=== PATIENT | female | born 1965 | race African-American/Black ===

== ENCOUNTER 2016-04-01 17:01 | Emergency (ER) | payer OTHER ==
[~2016-04-01] VITALS: Ht 163.8 cm; Wt 149.7 kg
[2016-04-01 17:17] VITALS: BP 172/89
--- NOTE | 2016-04-01 17:30 | PHYS DOC ---
Past Medical History Additional Past Medical Histor: anxiety depression hypothyroidism Additional Past Surgical Histo: cholecystectomy Alcohol Use: None Drug Use: None Adult General Chief Complaint Chief Complaint: DIZZY/LIGHT HEADED HPI HPI 50-year-old female presenting to the emergency department today with head trauma. She reports slipping on the ice today at around 6:00 this morning. It she hit her head. She denies loss of consciousness. She denies unilateral numbness weakness or tingling. She does describe lightheadedness intermittently. Onset 6:00 Location head Duration intermittent No alleviating factors. Worse with concentrating. Review of Systems Review of Systems ROS negative for chest pain abdominal pain shortness of breath. She denies unilateral numbness weakness or tingling. All other review of systems is negative unless otherwise noted in history of present illness. Allergies Allergies Allergies Coded Allergies Type Severity Reaction Last Updated Verified Penicillins Allergy Intermediate rash 04/01/16 Yes Physical Exam Physical Exam Constitutional: Well developed, well nourished, no acute distress, non-toxic appearance. HENT: Normocephalic, atraumatic, bilateral external ears normal, oropharynx moist, no oral exudates, nose normal. [] Eyes: PERRLA, EOMI, conjunctiva normal, no discharge. Neck: Normal range of motion, no tenderness, supple, no stridor. [] Cardiovascular:Heart rate regular rhythm, no murmur [] Lungs & Thorax: Bilateral breath sounds clear to auscultation Abdomen: Bowel sounds normal, soft, no tenderness, no masses, no pulsatile masses. [] Skin: Warm, dry, no erythema, no rash. Back: No tenderness, no CVA tenderness. [] Extremities: No tenderness, no cyanosis, no clubbing, ROM intact, no edema. [] Neurologic: Mental status: Awake oriented and alert x3 Cranial nerves: Extraocular movements intact, eyebrows janel bilaterally smile symmetric, uvula elevation, shoulder shrug intact, tongue protrusion normal DTRs: 2+ Sensation: equal and normal in all extremities Strength: 5/5 in upper and lower extremities bilaterally Psychologic: Affect normal, judgement normal, mood normal. [] Current Patient Data Vital Signs Vital Signs Date Time Temp Pulse Resp B/P Pulse Ox O2 Delivery O2 Flow Rate FiO2 04/01/16 17:17 98 88 18 172/89 99 Room Air 98.0 Radiology/Procedures Radiology/Procedures [] Course & Med Decision Making Course & Med Decision Making Pertinent Labs and Imaging studies reviewed. (See chart for details) 50-year-old female presenting to the emergency department today with intermittent lightheadedness headache and confusion after head trauma. [place] head CT rules applied. Recommended no head CT. Turk[place] C-spine rules applied recommends no CT C-spine. Patient's clinical presentation suggestive of concussion. Concussion guidelines and [id number] instructions given. The patient was referred to the [facility] concussion clinic. Dragon Disclaimer Dragon Disclaimer This electronic medical record was generated, in whole or in part, using a voice recognition dictation system. Departure Departure Impression: Primary Impression: Brain concussion Disposition: 01 HOME, SELF-CARE Admitting Physician: Other Condition: STABLE Patient Instructions: Concussion and Brain Injury Additional Instructions: Thank you for allowing us to participate in your care today. Follow up with the [facility] at [phone]. If you do not have a primary care provider you can ask for a list of our primary care providers. Return to the emergency department you have any new or concerning findings. This should be evaluated by the primary care physician and any necessary consulting services for continued management within a few days after discharge. Return to emergency room if you have any new or concerning symptoms including but not limited to fever, chills, nausea, vomiting, intractable pain, any new rashes, chest pain, shortness of air, uncontrolled bleeding, difficulty breathing, and/or vision loss. Scripts Hydrocodone Bit/Acetaminophen (Hydrocodone-Apap 5-325 )1 Each Tablet1 Tab PO PRN Q6HRS PRN PAIN #15 TAB Be careful as this medication may cause you to be drowsy or tired. Do not drive on this medication. Prov:JAVAN EMANUEL MD 04/01/16 JAVAN EMANUEL MD Apr 01, 2016 17:30
[2016-04-01] MEDS ORDERED: HYDR-2666 PO (17:39)
== END 2016-04-01 17:40 | disposition home or self-care (01) ==
LOC: ER 17:01
DX: S06.0X0A Concussion without loss of consciousness, initial encounter (principal); E03.9 Hypothyroidism, unspecified; Z88.0 Allergy status to penicillin; W00.2XXA Other fall from one level to another due to ice and snow, initial encounter; Y93.89 Activity, other specified; Y99.8 Other external cause status; Y92.89 Other specified places as the place of occurrence of the external cause
CPT/HCPCS: 99283

== ENCOUNTER → 2018-02-04 | Outpatient (CLI) | payer SELFPAY ==
[~2018-02-04] MED LIST: HYDR-2758 PO
--- NOTE | 2018-02-05 17:25 | KCIC ---
Bilateral digital screening mammograms: Reason for examination: Routine screening. Comparison is made to previous studies dated 03/01/2015 and 07/14/2013. Interpretation is made with the benefit of CAD. The skin and nipples show no abnormalities. No abnormal lymph nodes are seen. The breast parenchyma is predominantly fatty. (Breast density: Category A.) There are no dominant masses, suspicious calcifications or architectural distortions. A few benign calcifications are again seen. Impression: No evidence of malignancy. Recommend routine screening. BI-RADS Category 2: Benign. "Our facility is accredited by the [employer] Mammography Program." This patient's information has been entered into a reminder system for the patient to be notified with the results of her examination and a target date for the next mammogram. Electronically signed by: Violet Bunch MD (02/05/2018 5:22 PM) [id number]
== END | disposition home or self-care (01) ==
LOC: KCIC MAMMO 15:40
PROVIDERS: ATTEND Internal Medicine
DX: Z12.31 Encounter for screening mammogram for malignant neoplasm of breast (principal)
CPT/HCPCS: 77067

== ENCOUNTER 2021-03-10 05:57 | Day surgery (SDC) | payer BC ==
[~2021-03-10] VITALS: Ht 162.6 cm; Wt 159.0 kg
[~2021-03-10 05:57] MED LIST changes: +CITA20TA6 PO; -HYDR-2758 PO; +HYDR-2761 PO; +LEVO50TA5 PO; +LOVA20TA2 PO; +METF500T16 PO; +QUET200T4 PO
[2021-03-10] MEDS ORDERED: MORPHINE SULFATE 2 MG/ML INJ. IVP PRN (06:00)
[2021-03-10] MEDS ORDERED: IV RINGERS,LACTATED 1000ML 1,000 ML IV SCH (06:00)
[2021-03-10] MEDS ORDERED: PROCHLORPERAZINE 10 MG/2 ML VIAL. IVP PRN (06:00)
[2021-03-10] MEDS ORDERED: HYDROmorphone 2 MG/ML VIAL IVP PRN (06:00)
[2021-03-10] MEDS ORDERED: fentaNYL PF VIAL 100 MCG/2 ML VIAL IVP PRN ×2 (06:00)
[2021-03-10 06:27] VITALS: BP 150/77
[2021-03-10] MEDS ORDERED: INSULIN LISPRO 100 UNIT/ML 3ML VIAL for OP,RR ONLY. SQ PRN (06:30)
[2021-03-10] MEDS ORDERED: ONDANSETRON PF 4 MG/2 ML VIAL. ONE (07:00)
[2021-03-10] MEDS ORDERED: ROCURONIUM 100 MG/10 ML VIAL. ONE (07:00)
[2021-03-10] MEDS ORDERED: LIDOCAINE 1% PF 5 ML VIAL. ONE (07:00)
[2021-03-10] MEDS ORDERED: fentaNYL PF VIAL 100 MCG/2 ML VIAL ONE (07:00)
[2021-03-10] MEDS ORDERED: DEXAMETHASONE SOD PHOS 4 MG/ML VIAL ONE (07:00)
[2021-03-10] MEDS ORDERED: SUCCINYLCHOLINE 200 MG/10 ML VIAL. ONE (07:00)
[2021-03-10] MEDS ORDERED: KETOROLAC 30 MG/ML VIAL. ONE (08:34)
--- NOTE | 2021-03-10 08:50 | PDOC4 ---
BRIEF OPERATIVE NOTE Date: Mar 10, 2021 Pre-Op Diagnosis endometrial thickening Post-Op Diagnosis same Procedure Performed h/s D&C with myosure Surgeon Dr. Kori Oneill Anesthesiologist Dr. Villegas Anesthesia Type: General Blood Loss 10cc IV Fluid see anesthesia notes Urine Output 5cc straight cath prior Specimens Obtained endometrial currettings Findings just prolif white fluffy tissue; no discrete abnormalities; no polyps, fibroids Complications none Operative Note 4min 20 sec cut time with myosure reach fluid deficit 300cc [id number] KORI ONEILL MD Mar 10, 2021 08:50
[2021-03-10] MEDS ORDERED: SIMETHICONE 80 MG TAB.CHEW PO PRN (09:00)
[2021-03-10] MEDS ORDERED: MAG HYDROX/ALUMINUM HYD/SIMETH 30 ML ORAL.SUSP PO PRN (09:00)
[2021-03-10] MEDS ORDERED: diphenhydrAMINE 50 MG/ML VIAL IV PRN (09:00)
[2021-03-10] MEDS ORDERED: diphenhydrAMINE HCL 25 MG CAPSULE PO PRN (09:00)
[2021-03-10] MEDS ORDERED: 0.9 % SODIUM CHLORIDE 10 ML DISP.SYRIN. IV PRN (09:00)
[2021-03-10] MEDS ORDERED: HYDROcodone/APAP 5/325MG 1 TAB TABLET PO PRN (09:00)
[2021-03-10] MEDS ORDERED: CALCIUM CARBONATE 500 MG TAB.CHEW PO PRN (09:00)
[2021-03-10] MEDS ORDERED: NALOXONE 0.4 MG/ML VIAL. IV PRN (09:00)
--- NOTE | 2021-03-10 09:00 | OP ---
DATE OF SURGERY: 03/10/2021 PREOPERATIVE DIAGNOSES: Endometrial thickening with an episode of postmenopausal bleeding. POSTOPERATIVE DIAGNOSES: Endometrial thickening with an episode of postmenopausal bleeding. PROCEDURE: Hysteroscopy, D and C with MyoSure fluid collection system. SURGEON: Kori Devine MD. SOCIAL SECURITY ASSESSOR: OR personnel. ANESTHESIA: LMA. BLOOD LOSS: Of 10 mL URINE OUTPUT: Was 5 mL straight cath prior to procedure. SPECIMENS: Endometrial curettings. FINDINGS: Proliferative white fluffy tissue. No discrete endometrial abnormalities including no polyps or fibroids. COMPLICATIONS: None. FINDINGS: Normal left tubal ostia was seen. Right tubal ostia was covered with tissue. She had a fluid deficit of 300 and cut time of 4 minutes and 20 seconds approximately. DESCRIPTION OF PROCEDURE: This patient was taken to the operating room where general anesthesia was placed. The patient was placed in dorsal lithotomy position in Rodolfo stirrups. The patient's vagina was prepped and draped in the normal sterile fashion and a straight cath urine was done prior to my arrival. Upon my arrival, a timeout was performed. Once everyone agreed on the patient, the site, the procedure, the procedure was initiated. A weighted speculum was placed in the patient's vagina. A single-tooth tenaculum was used to grasp the anterior lip of the cervix. She was dilated up to a 6/7 with the Hegar dilators. The hysteroscope was placed in with the above findings. The MyoSure Reach was obtained and a curetting was done for 4 minutes and 20 seconds, cleaning out the white fluffy abundant proliferative endometrium. No other discrete abnormalities were seen, once this was done and it was ended. The single tooth tenaculum did come off once it was replaced. Once it came off, I removed the single tooth. I decided to go ahead and put 2-0 Vicryl sutures and the anterior lip of the cervix where it tore off with excellent results, just to make sure there was no bleeding. Once this was done, the procedure was ended. The tenaculum had been removed. The stitch had been placed in the cervix. The weighted speculum was removed and all counts were correct x 2 by OR personnel and she is currently being awakened from the anesthesia. SO/CHATA DR: Misti TID: [id number]
[2021-03-10] MEDS ORDERED: HYDROcodone/APAP 5/325MG 1 TAB TABLET PO ONE (09:30)
[2021-03-10] MEDS ORDERED: PROCHLORPERAZINE 10 MG/2 ML VIAL. ONE (09:37)
[2021-03-10 09:55] VITALS: BP 163/74
--- NOTE | 2021-03-15 18:16 | PATHOLOGY ---
[facility] Accession Number: [id number] . 01 Material submitted: . endometrium - ENDOMETRIAL CURETTINGS . 01 Clinical history: . PMB OPERATIVE HYSTERECTOMY WITH DILATION, CURETTAGE WITH MYOSURE . 02 Diagnosis: Endometrial curettings: - Segments of slightly disordered proliferative endometrium, focal thin attenuated endometrium, and multiple segments of myometrial tissue identified. LBQ 03/15/2021 1733 Local . 02 Comment: There is no evidence of endometrial hyperplasia or malignancy identified. (JPM/db; 03/15/2021) . 02 Electronically signed: . Mikel Hairston MD, Pathologist NPI- [id number] . 01 Gross description: . Received in formalin labeled "Teresa Ferro, endometrial curettings" is a 3.9 x 2.2 x 0.3 cm aggregate of red-brown friable soft tissue fragments. The specimen is submitted entirely in A1-A2. ([facility]; 03/11/2021) GZA/GZA 03/11/2021 1016 Local . 02 Pathologist provided ICD-10: N85.8 . 02 CPT . 298500 Specimen Comment: A courtesy copy of this report has been sent to [phone], [phone] Specimen Comment: [id number] Specimen Comment: Report sent to / DR CALIX Specimen Comment: A duplicate report has been generated due to demographic updates. Performed at: 01 [facility] [address] [id number] MD [place] MD Phone: [phone] Performed at: 02 [facility] [address] [place], [place] [id number] MD Mikel Hairston MD Phone: [phone]
== END 2021-03-10 10:25 | disposition home or self-care (01) ==
LOC: SURG 05:57
PROVIDERS: ATTEND Obstetrics & Gynecology
DX: R93.89 Abnormal findings on diagnostic imaging of other specified body structures (principal); N95.0 Postmenopausal bleeding; N85.8 Other specified noninflammatory disorders of uterus; E78.00 Pure hypercholesterolemia, unspecified; E11.9 Type 2 diabetes mellitus without complications; G47.30 Sleep apnea, unspecified; F41.9 Anxiety disorder, unspecified; F32.9 Major depressive disorder, single episode, unspecified; E66.9 Obesity, unspecified; M19.90 Unspecified osteoarthritis, unspecified site; Z79.899 Other long term (current) drug therapy; Z79.84 Long term (current) use of oral hypoglycemic drugs; Z90.49 Acquired absence of other specified parts of digestive tract; Z98.890 Other specified postprocedural states; Z88.0 Allergy status to penicillin
CPT/HCPCS: 58558; 81025; 82962; A4930; J0330; J0780; J1100; J1885; J2405; J3010; J3490; 88305

== ENCOUNTER → 2021-04-08 | Outpatient (CLI) | payer BC ==
[2021-03-10 09:55] VITALS: BP 163/74
--- NOTE | 2021-04-08 14:43 | KCIC ---
Bilateral digital screening mammograms: Reason for examination: Routine screening. Comparison is made to previous studies dated back to 07/14/2013. Interpretation was made with the benefit of CAD. The skin and nipples show no abnormalities. No abnormal lymph nodes are seen. The breast parenchyma i s predominantly fatty. (Breast density: Category A.) There are no dominant masses, suspicious calcifi cations or architectural distortions. A few benign calcifications are again seen. Impression: No evidence of malignancy. Recommend routine screening. BI-RADS Category 2: Benign. "Our facility is accredited by the [employer] Mammography Program." This patient's information has been entered into a reminder system for the patient to be notified wit h the results of her examination and a target date for the next mammogram. Electronically signed by: Violet Bunch MD (04/08/2021 2:41 PM) [id number]
== END ==
LOC: KCIC MAMMO 13:00
PROVIDERS: ATTEND Nurse Practitioner Women's Health
DX: Z12.31 Encounter for screening mammogram for malignant neoplasm of breast (principal)
CPT/HCPCS: 77067